=== PATIENT | female | born 1990 | race Caucasian/White ===

== ENCOUNTER 2016-11-21 12:00 | Emergency (ER) | payer OTHER ==
[2016-11-21 12:05] VITALS: TEMP 97.8; BMI 20.8
--- NOTE | 2016-11-21 12:49 | PDOC ---
[id number] No Limitations - History of Present Illness Initial Comments: 11/21/16 13:06 The patient is a 26 year old female, 14 weeks (), with no significant past medical history who presents to the ED with complaints of vomiting for several weeks. The patient reports multiple episodes of vomiting every day since week 6 of her . She states she is unable to retain her food or any medication secondary to vomiting. Patient notes she is currently being treated for a yeast infection. Denies abdominal pain, constipation or diarrhea. Denies vaginal bleeding or vaginal discharge. Denies dysuria, frequency, or urgency. Denies any other symptoms. <Clayton Lacey - Last Filed: 11/21/16 13:06> <Nilda Knott - Last Filed: 11/25/16 08:46> - General Chief Complaint: Nausea/Vomiting Stated Complaint: DEHYDRATED (PCP SENT) Time Seen by Provider: 11/21/16 12:30 Past History <Clayton Lacey - Last Filed: 11/21/16 13:06> - Past Medical History Other medical history: none - Psycho/Social/Smoking Cessation Hx Anxiety: No Suicidal Ideation: No Smoking History: Never smoked Have you smoked in the past 12 months: No Information on smoking cessation initiated: No Hx Alcohol Use: No Drug/Substance Use Hx: No Substance Use Type: None <Nilda Knott - Last Filed: 11/25/16 08:46> - Past Medical History Allergies/Adverse Reactions: Allergies Allergy/AdvReac Type Severity Reaction Status Date / Time No Known Allergies Allergy Verified 11/21/16 12:02 Home Medications: Ambulatory Orders Ondansetron [Zofran -] 4 mg PO TID PRN #21 tablet 11/21/16 Review of Systems - Review of Systems Able to Perform ROS?: Yes Comments:: 11/21/16 13:06 GENERAL/CONSTITUTIONAL: No fever or chills. No weakness. HEAD, EYES, EARS, NOSE AND THROAT: No change in vision. No ear pain or discharge. No sore throat. CARDIOVASCULAR: No chest pain or shortness of breath. RESPIRATORY: No cough, wheezing, or hemoptysis. GASTROINTESTINAL:+ nausea, vomiting. No diarrhea or constipation. GENITOURINARY: No dysuria, frequency, or change in urination. MUSCULOSKELETAL: No joint or muscle swelling or pain. No neck or back pain. SKIN: No rash NEUROLOGIC: No headache, vertigo, loss of consciousness, or change in strength/ sensation. ENDOCRINE: No increased thirst. No abnormal weight change. HEMATOLOGIC/LYMPHATIC: No anemia, easy bleeding, or history of blood clots. ALLERGIC/IMMUNOLOGIC: No hives or skin allergy. All Other Systems: Reviewed and Negative <Clayton Lacey - Last Filed: 11/21/16 13:06> *Physical Exam - Vital Signs Last Vital Signs Temp Pulse Resp BP Pulse Ox 97.8 F 85 18 103/60 100 11/21/16 12:02 11/21/16 12:02 11/21/16 12:02 11/21/16 12:02 11/21/16 12:02 - Physical Exam Comments: 11/21/16 13:06 GENERAL: Awake, alert, and fully oriented, in no acute distress HEAD: No signs of trauma EYES: PERRLA, EOMI, sclera anicteric, conjunctiva clear ENT:+ dry mucosa. Auricles normal inspection, hearing grossly normal, nares patent, oropharynx clear without exudates. NECK: Normal ROM, supple, no lymphadenopathy, JVD, or masses LUNGS: Breath sounds equal, clear to auscultation bilaterally. No wheezes, and no crackles HEART: Regular rate and rhythm, normal S1 and S2, no murmurs, rubs or gallops ABDOMEN: Soft, nontender, normoactive bowel sounds. No guarding, no rebound. No masses EXTREMITIES: Normal range of motion, no edema. No clubbing or cyanosis. No cords, erythema, or tenderness NEUROLOGICAL: Cranial nerves II through XII grossly intact. Normal speech, normal gait SKIN: Warm, Dry, normal turgor, no rashes or lesions noted. <Clayton Lacey - Last Filed: 11/21/16 13:06> - Vital Signs Last Vital Signs Temp Pulse Resp BP Pulse Ox 97.8 F 85 18 103/60 100 11/21/16 12:02 11/21/16 12:02 11/21/16 12:02 11/21/16 12:02 11/21/16 12:02 <Nilda Knott - Last Filed: 11/25/16 08:46> ED Treatment Course - LABORATORY CBC & Chemistry Diagram: 11/21/16 13:37 11/21/16 13:37 <Nilda Knott - Last Filed: 11/25/16 08:46> Medical Decision Making - Medical Decision Making 11/21/16 16:05 Pt improved significantly with IV hydration, zofran. Able to tolerate juice and crackers PO. Stable for DC home. <Nilda Knott - Last Filed: 11/25/16 08:46> *DC/Admit/Observation/Transfer - Attestations Scribe Attestion: 11/21/16 13:06 Documentation prepared by Clayton Lacey, acting as medical technologist generalist for Nilda Knott MD <Clayton Lacey - Last Filed: 11/21/16 13:06> - Discharge Dispostion Admit: No <Nilda Knott - Last Filed: 11/25/16 08:46> Diagnosis at time of Disposition: Nausea & vomiting Qualifiers: Vomiting type: unspecified Vomiting Intractability: non-intractable Qualified Code(s): R11.2 - Nausea with vomiting, unspecified - Discharge Dispostion Disposition: HOME Condition at time of disposition: Stable - Prescriptions Prescriptions: Ondansetron [Zofran -] 4 mg PO TID PRN #21 tablet PRN Reason: Nausea And/Or Vomiting - Referrals Referrals: Esther Montes MD [Primary Care Provider] - - Patient Instructions Printed Discharge Instructions: DI for Hyperemesis Gravidarum Additional Instructions: Crystallized guerline to help with nausea. Can also try guerline tea- steep 1 tbsp grated fresh guerline in 2 cups of hot water. Marleny with honey. Can also add lemon for flavor. - Post Discharge Activity Work/School Note: Back to Work
[2016-11-21] MEDS ORDERED: LACTATED RINGERS SOLUTION 1,000 ML IV STA (12:51)
[2016-11-21 13:50] LABS: BASOPHIL 0.2 % (0-2.0); MCH 31.4 pg (25.7-33.7); MCHC 34.2 g/dl (32.0-36.0); MEAN CELL VOLUME 91.7 fl (80-96); MEAN PLT VOLUME 9.5 fl (7.5-11.1); NEUTROPHILS 70.9 % (42.8-82.8); PLATELET COUNT 159 K/MM3 (134-434); WHITE BLOOD COUNT 9.2 K/mm3 (4.0-10.0)
[2016-11-21 13:55] LABS: URINE APPEARANCE SLCLOUDY; URINE BILIRUBIN NEGATIVE (NEGATIVE); URINE BLOOD NEGATIVE (NEGATIVE); URINE COLOR AMBER; URINE GLUCOSE (UA) NEGATIVE (NEGATIVE); URINE KETONE TRACE (NEGATIVE); URINE NITRITE NEGATIVE (NEGATIVE); URINE UROBILINOGEN NEGATIVE E.U./dl (0.2-1.0)
[2016-11-21 13:58] LABS: URINE LEUK ESTERASE 1+ (NEGATIVE); URINE PROTEIN 1+ (NEGATIVE)
[2016-11-21 14:00] LABS: URINE MUCUS FEW; URINE RBC 7 /hpf (0-3); URINE WBC 6 /hpf (3-5); YEAST FEW
[2016-11-21 14:33] LABS: ALBUMIN 3.5 g/dl (3.4-5.0); ANION GAP 9 (8-16); CALCIUM 8.7 mg/dL (8.5-10.1); CO2 26 mmol/L (21-32); GLUCOSE,RANDOM 83 mg/dL (74-106); MAGNESIUM 1.8 mg/dL (1.8-2.4)
[2016-11-21] MEDS ORDERED: ONDANSETRON 4 MG/2 ML VIAL IVPUSH ONE (14:48)
[2016-11-21 14:52] LABS: ALK PHOS 68 U/L (45-117); BILIRUBIN,TOTAL 0.3 mg/dL (0.2-1.0); CREATININE 0.5 mg/dL (0.55-1.02); SGOT/AST 13 U/L (15-37); SGPT/ALT 20 U/L (12-78); TOT PROT 6.6 g/dl (6.4-8.2)
[2016-11-21] MEDS ORDERED: ONDANSETRON 4 MG/2 ML VIAL ONE (14:57)
[2016-11-21 15:48] VITALS: BP 99/42; PULSE 81
== END 2016-11-21 16:18 | disposition home or self-care (01) ==
LOC: JER 12:00
PROC: 3E0337Z Introduction of Electrolytic and Water Balance Substance into Peripheral Vein, Percutaneous Approach (ICD-10-PCS; principal; 2016-11-21)
PROC: 3E033GC Introduction of Other Therapeutic Substance into Peripheral Vein, Percutaneous Approach (ICD-10-PCS; 2016-11-21)
DX: O21.1 Hyperemesis gravidarum with metabolic disturbance (principal); Z3A.14 14 weeks gestation of pregnancy
CPT/HCPCS: 36415; 80053; 81003; 81015; 83690; 83735; 84702; 84703; 85025; 96361; 96374; 99283-25

== ENCOUNTER 2017-05-07 03:36 | Inpatient (IN) | payer OTHER ==
[2017-05-07] MEDS ORDERED: PROMETHAZINE HCL 25 MG/1 ML VIAL IVPUSH ONE (04:05)
[2017-05-07] MEDS ORDERED: BUTORPHANOL TARTRATE 1 MG/ML VIAL IVPB ONE (04:05)
[2017-05-07] MEDS ORDERED: DEXTROSE 5%-LACTATED RINGERS 1,000 ML IV SCH (04:15)
--- NOTE | 2017-05-07 05:04 | HP ---
Past Medical History - Admission History of Present Illness: 26 y/o with SIUP at 38.1 weeks gestation here with complaints of painful contractions. +FM, some slight vaginal spotting/discharge, no LOF yet. Pt seen earlier today was 2cm dilated. 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 No other complications. GBS negative, HIV negative. History Source: Patient, Medical Record Limitations to Obtaining History: No Limitations - Past Medical History Cardiovascular: No: HTN, MS Pulmonary: No: Asthma, COPD Gastrointestinal: No: Gastritis, Inflamatory Bowel Disease Hepatobiliary: No: Hepatitis B, Hepatitis C ...: 1 ...Para: 0 ...Term: 0 ...: 0 ...Spon : 0 ...Induced : 0 ...Multiple Gestation: 0 ... Weeks Gestation by Dates: 38.1 Heme/Onc: No: Anemia Infectious Disease: No: HIV, MRSA Psych: No: Anxiety, Bipolar, Depression - Past Surgical History Past Surgical History: Yes: None Hx Myomectomy: No Hx Transabdominal Cerclage: No - Smoking History Smoking history: Never smoked Have you smoked in the past 12 months: No - Alcohol/Substance Use Hx Alcohol Use: No - Social History Usual Living Arrangement: Yes: With Significant Other ADL: Independent History of Recent Travel: No Home Medications - Allergies Allergies/Adverse Reactions: Allergies Allergy/AdvReac Type Severity Reaction Status Date / Time No Known Allergies Allergy Verified 05/06/17 14:03 - Home Medications Home Medications: Ambulatory Orders Pnv95/Ferrous Fumarate/FA [ Vitamin Tablet] 1 each PO DAILY 05/06/17 Review of Systems - Review of Systems Constitutional: reports: No Symptoms Eyes: reports: No Symptoms HENT: reports: No Symptoms Neck: reports: No Symptoms Cardiovascular: reports: No Symptoms Respiratory: reports: No Symptoms Gastrointestinal: reports: No Symptoms Genitourinary: reports: No Symptoms Breasts: reports: No Symptoms Reported Musculoskeletal: reports: No Symptoms Integumentary: reports: No Symptoms Neurological: reports: No Symptoms Endocrine: reports: No Symptoms Hematology/Lymphatic: reports: No Symptoms Psychiatric: reports: No Symptoms Physical Exam - Maternity Constitutional: Yes: Well Nourished, No Distress, Calm Eyes: Yes: Conjunctiva Clear, EOM Intact HENT: Yes: Atraumatic, Normocephalic Neck: Yes: Supple, Trachea Midline Cardiovascular: Yes: Regular Rate and Rhythm Lungs: Clear to auscultation Breast(s): Yes: WNL - Abdominal Exam/OB Fundal Height: 37 Number of Fetuses: Single Presentation: Vertex Contractions: Yes Regularity: Regular Intensity: Moderate Monitor Mode: External Heart Rate (range): 125 Category: I Accelerations: Uniform Decelerations: Early - Vaginal Exam/OB Vaginal Bleediing: Yes (slight blood tinged discharge) Dilatation (cm): 4 Effacement (%): 90 Amniotic Membrane Status: Intact Station: -1 - Physical Exam Psychiatric: Yes: Alert, Oriented Hemorrhage Risk Assessment - Risk Factors Medium Risk Factors: Yes: None High Risk Factors: Yes: None Risk Score: 1 Risk Level: Medium Risk Assessment/Plan 26 y/o with SIUP at 38.1 weeks gestation here in labor - AFVSS - FHTS cat 1 - labor - admit to L&D, start IV, labs, ambulation PRN, analgesia PRN, for expectant management - GBS negative
[2017-05-07 05:18] VITALS: BMI 24.5
[2017-05-07 05:19] LABS: BASOPHIL 0.4 % (0-2.0); EOSINOPHIL 1.2 % (0-4.5); MCH 32.2 pg (25.7-33.7); MEAN CELL VOLUME 94.7 fl (80-96); PLATELET COUNT 143 K/MM3 (134-434); RDW 13.5 % (11.6-15.6); WHITE BLOOD COUNT 11.6 K/mm3 (4.0-10.0)
[2017-05-07 05:30] LABS: INR 1.01 (0.82-1.09); PROTHROMBIN TIME (PATIENT) 11.1 SEC (9.98-11.88)
[2017-05-07 05:33] LABS: ACTIVATED PTT 27.3 SECONDS (26.9-34.4)
[2017-05-07 05:38] LABS: ANION GAP 8 (8-16); CALCIUM 8.9 mg/dL (8.5-10.1); CO2 24 mmol/L (21-32); CREATININE 0.6 mg/dL (0.55-1.02); GLUCOSE,RANDOM 75 mg/dL (74-106)
--- NOTE | 2017-05-07 07:33 | PN ---
Ante-Partal Exam - Subjective Vital Signs: Vital Signs Temperature 98.5 F 05/07/17 07:00 Pulse Rate 74 05/07/17 07:00 Respiratory Rate 20 05/07/17 07:00 Blood Pressure 114/69 05/07/17 07:00 O2 Sat by Pulse Oximetry (%) Bleeding: No Headache: No Visual changes: No Right upper quadrant pain: No Pain (scale 1-10): 8 - Contractions Contractions: Yes Regularity: Regular Intensity: Mod/Strong Monitor Mode: External - Exam during Labor Heart Rate: 130 Variability: Moderate Category: I Monitor Accelerations: Present Monitor Decelerations: None Exam: Vaginal Dilatation (cm): 5 Effacement (%): 90 Amniotic Membrane Status: Intact Presentation: Vertex Station: -1 - Assessment/Plan Assessment/Plan: 26 y/o with SIUP at 38.1 weeks, labor - FHTS cat 1 - active labor, continue expectant management - analgesia prn - GBS negative - anticipate
[2017-05-07] MEDS ORDERED: TUBERCULIN PPD 5 TU/0.1ML SYRINGE (IN PATIENT USE ONLY) ID ONE (09:00)
--- NOTE | 2017-05-07 13:27 | PN ---
Ante-Partal Exam - Subjective Subjective: Pt states contractions the IV medication is wearing off. Feeling the contractions coming back strong again. Vital Signs: Vital Signs Temperature 98.2 F 05/07/17 12:00 Pulse Rate 72 05/07/17 12:00 Respiratory Rate 18 05/07/17 12:00 Blood Pressure 110/68 05/07/17 12:00 O2 Sat by Pulse Oximetry (%) Bleeding: Yes Bleeding Description: Mild Headache: No Visual changes: No Right upper quadrant pain: No Pain (scale 1-10): 5 - Contractions Contractions: Yes Regularity: Irregular Intensity: Moderate - Exam during Labor Heart Rate: 140 Variability: Moderate Category: I Monitor Accelerations: Present Monitor Decelerations: None Exam: Vaginal Dilatation (cm): 6.5 Effacement (%): 90 Amniotic Membrane Status: Ruptured (AROM for clear fluid at this exam) Amniotic Fluid: Clear Presentation: Vertex Station: -1 - Intrapartum Hemorrhage Risk High Risk Factors: None Risk Score: 0 Risk Level: Low Risk - Assessment/Plan Assessment/Plan: 26 y/o with SIUP at 38.1 weeks in labor - AFVSS - FHTs cat 1 - admitted in labor, s/p AROM, making progress with expectant management, will wait to start pitocin at this time, pt tolerating contractions, for analgesia/ epidural prn - GBS negative - anticipate
[2017-05-07] MEDS ORDERED: BUTORPHANOL TARTRATE 1 MG/ML VIAL IM PRN (14:45)
[2017-05-07] MEDS ORDERED: PROMETHAZINE HCL 25 MG/1 ML VIAL IVPB PRN (14:46)
--- NOTE | 2017-05-07 17:03 | PN ---
Delivery - Delivery Vaginal Delivery: No Problems Episiotomy/Laceration: 2nd degree Delivery, Single - Stages of Labor Date of Delivery: 05/07/17 Time of Delivery: 16:34 Date Placenta Delivered: 05/07/17 Time Placenta Delivered: 16:47 Placenta: Yes: Spontaneous - Condition of Water Treatment Technician/Bill Recapitulation Clerk Present: No Gender: Female Position: Right, OA - 1 Minute Total Score: 9 5 Minutes Total Score: 9 - Keller Feeding Plan Initial Plan: Exclusive throughout hospitalization Remarks - Remarks Remarks: Normal from JOAN position anterior shoulder (left) delivered with ease, along with remainder of no nuchal cord noted 2nd degree perineal laceration noted - 10cc of 1% lidocaine injected and repair completed with 2-0 Chromic suture in the usual fashion EBL 300cc sponge and needle count correct after the procedure mom stable baby to well baby nursery
[2017-05-07] MEDS ORDERED: BENZOCAINE 28 GM HEMORRHOIDAL OINTMENT TP PRN (17:04)
[2017-05-07] MEDS ORDERED: METHYLERGONOVINE MALEATE 0.2 MG/1 ML AMP IM PRN (17:04)
[2017-05-07] MEDS ORDERED: WITCH HAZEL 50% (TUCKS) 40 PAD/JAR PAD TP PRN (17:04)
[2017-05-07] MEDS ORDERED: BISACODYL 10 MG SUPP.RECT RC PRN (17:04)
[2017-05-07] MEDS ORDERED: BENZOCAINE 20% 57 GM BOTTLE TP PRN (17:04)
[2017-05-07] MEDS ORDERED: OXYTOCIN 20 UNITS in 0.9% NS 1,000 ML IV SCH (17:15)
[2017-05-07] MEDS: IBUPROFEN 600 MG TABLET (FP) PO PRN (18:15)
[2017-05-07] MEDS: ACETAMINOPHEN 325 MG TABLET (FP) PO PRN (18:15)
[2017-05-08] MEDS: IBUPROFEN 600 MG TABLET (FP) PO PRN ×3 (06:29→21:12)
[2017-05-08] MEDS: ACETAMINOPHEN 325 MG TABLET (FP) PO PRN ×3 (06:30→21:13)
[2017-05-08 07:58] LABS: BASOPHIL 0.5 % (0-2.0); EOSINOPHIL 0.7 % (0-4.5); MCH 32.1 pg (25.7-33.7); MCHC 33.9 g/dl (32.0-36.0); MEAN CELL VOLUME 94.5 fl (80-96); NEUTROPHILS 65.9 % (42.8-82.8); PLATELET COUNT 117 K/MM3 (134-434); RDW 13.9 % (11.6-15.6); WHITE BLOOD COUNT 11.8 K/mm3 (4.0-10.0)
--- NOTE | 2017-05-08 09:06 | PN ---
Post Progress Note Type of Delivery: Vital Signs: Vital Signs Temperature 98.4 F 05/08/17 06:00 Pulse Rate 84 05/08/17 06:00 Respiratory Rate 18 05/08/17 06:00 Blood Pressure 103/69 05/08/17 06:00 O2 Sat by Pulse Oximetry (%) 100 05/07/17 17:40 Uterus: Yes: Fundus Firm, Fundus below umbilicus Abdomen/GI: Yes: Abdomen soft, Passing flatus, Tolerating PO. No: Abdominal Distention, Tender Lochia: Yes: Rubra Lochia, amount: Small Extremities: Yes: Calves non-tender. No: Edema Perineum: Yes: Laceration (2nd degree - repaired) Activity: Ambulating - Labs Labs: CBC WBC 11.8 K/mm3 (4.0-10.0) H 05/08/17 07:09 RBC 3.58 M/mm3 (3.60-5.2) L 05/08/17 07:09 Hgb 11.5 GM/dL (10.7-15.3) D 05/08/17 07:09 Hct 33.9 % (32.4-45.2) 05/08/17 07:09 MCV 94.5 fl (80-96) 05/08/17 07:09 MCH 32.1 pg (25.7-33.7) 05/08/17 07:09 MCHC 33.9 g/dl (32.0-36.0) 05/08/17 07:09 RDW 13.9 % (11.6-15.6) 05/08/17 07:09 Plt Count 117 K/MM3 (134-434) L 05/08/17 07:09 MPV 11.0 fl (7.5-11.1) 05/08/17 07:09 Neutrophils % 65.9 % (42.8-82.8) 05/08/17 07:09 Lymphocytes % 25.0 % (8-40) 05/08/17 07:09 Monocytes % 7.9 % (3.8-10.2) 05/08/17 07:09 Eosinophils % 0.7 % (0-4.5) 05/08/17 07:09 Basophils % 0.5 % (0-2.0) 05/08/17 07:09 Problem List - Problems (1) Normal vaginal delivery Code(s): O80 - ENCOUNTER FOR FULL-TERM UNCOMPLICATED DELIVERY Assessment/Plan 26 y/o PPD#1 s/p normal - AFVSS - Hgb 11.5 post delivery, stable - encourage ambulation - regular diet - PO pain meds - routine care
--- NOTE | 2017-05-08 09:08 | DS ---
Physical Exam-CARDIAC/VASCULAR SONOGRAPHER Vital Signs: Vital Signs Temperature 98.4 F 05/08/17 06:00 Pulse Rate 84 05/08/17 06:00 Respiratory Rate 18 05/08/17 06:00 Blood Pressure 103/69 05/08/17 06:00 O2 Sat by Pulse Oximetry (%) 100 05/07/17 17:40 Constitutional: Yes: Well Nourished, No Distress, Calm Eyes: Yes: Conjunctiva Clear, EOM Intact HENT: Yes: Atraumatic, Normocephalic Neck: Yes: Trachea Midline Cardiovascular: Yes: Regular Rate and Rhythm Respiratory: Yes: Regular Gastrointestinal: Yes: Normal Bowel Sounds, Soft Vaginal Exam: Yes: Bleeding (normal post lochia) Wound/Incision: Yes: Well Approximated, Sutures Intact Psychiatric: Yes: Alert, Oriented Labs: CBC, BMP 05/08/17 07:09 05/07/17 04:30 Delivery - Delivery Vaginal Delivery: No Problems Type of Anesthesia: Local Episiotomy/Laceration: Perineal Extension/lac, 2nd degree EBL (cc): 300 Delivery, Single - Stages of Labor Date 1st Stage Initiatied: 05/07/17 Time 1st Stage Initiated: 03:00 Date 2nd Stage Initiated: 05/07/17 Time 2nd Stage Initiated: 16:15 Date of Delivery: 05/07/17 Time of Delivery: 16:34 Time Placenta Delivered: 16:47 Placenta: Yes: Spontaneous - Condition of Metal Technician/Teacher Nursery School Present: No Gender: Female Weight: 6 lb Position: Right, OA Total Hours ROM (Hrs/Mins): 3HRS 27MIN - 1 Minute Total Score: 9 5 Minutes Total Score: 9 - Feeding Plan Initial Plan: Exclusive throughout hospitalization Discharge Summary Reason For Visit: ADMIT FOR LABOR Current Active Problems Normal vaginal delivery (Acute) Procedures: Principal: normal Hospital Course: Patient admitted on 05/07 in labor. Pt underwent a normal uncomplicated on 05/07. She then had an uncomplicated post recovery and was discharged home on post day 2. - Home Medications Comprehensive Discharge Medication List: Ambulatory Orders Pnv95/Ferrous Fumarate/FA [ Vitamin Tablet] 1 each PO DAILY 05/06/17
[2017-05-08] MEDS ORDERED: DIPHTH,PERTUSS(ACELL),TET 0.5 ML DISP.SYRIN IM ONE (10:00)
[2017-05-08] MEDS: PRENATAL VITAMINS W/ FOLIC ACID TABLET (FP) PO SCH (10:37)
[2017-05-08 14:40] VITALS: PULSE 82; TEMP 98.7
[2017-05-08] MEDS ORDERED: SENNOSIDES/DOCUSATE COMBO (SENNA PLUS) TABLET (UD) PO PRN (22:00)
[2017-05-09] MEDS: IBUPROFEN 600 MG TABLET (FP) PO PRN (07:52)
[2017-05-09] MEDS: ACETAMINOPHEN 325 MG TABLET (FP) PO PRN (07:53)
[2017-05-09 09:02] VITALS: BP 112/75
[2017-05-09] MEDS: PRENATAL VITAMINS W/ FOLIC ACID TABLET (FP) PO SCH (09:24)
--- NOTE | 2017-05-09 10:00 | PN ---
Post Progress Note - Subjective Subjective: 26 yo Para 1 status post seen and evaluated Doing well. Post Day: 2 Type of Delivery: Vital Signs: Vital Signs Temperature 98.7 F 05/09/17 08:40 Pulse Rate 82 05/09/17 08:40 Respiratory Rate 20 05/09/17 08:40 Blood Pressure 112/75 05/09/17 08:40 O2 Sat by Pulse Oximetry (%) 100 05/07/17 17:40 Breast Exam: Yes: Soft Uterus: Yes: Fundus Firm Abdomen/GI: Yes: Abdomen soft, Tolerating PO Lochia: Yes: Rubra Lochia, amount: Moderate - Labs Labs: CBC WBC 11.8 K/mm3 (4.0-10.0) H 05/08/17 07:09 RBC 3.58 M/mm3 (3.60-5.2) L 05/08/17 07:09 Hgb 11.5 GM/dL (10.7-15.3) D 05/08/17 07:09 Hct 33.9 % (32.4-45.2) 05/08/17 07:09 MCV 94.5 fl (80-96) 05/08/17 07:09 MCH 32.1 pg (25.7-33.7) 05/08/17 07:09 MCHC 33.9 g/dl (32.0-36.0) 05/08/17 07:09 RDW 13.9 % (11.6-15.6) 05/08/17 07:09 Plt Count 117 K/MM3 (134-434) L 05/08/17 07:09 MPV 11.0 fl (7.5-11.1) 05/08/17 07:09 Neutrophils % 65.9 % (42.8-82.8) 05/08/17 07:09 Lymphocytes % 25.0 % (8-40) 05/08/17 07:09 Monocytes % 7.9 % (3.8-10.2) 05/08/17 07:09 Eosinophils % 0.7 % (0-4.5) 05/08/17 07:09 Basophils % 0.5 % (0-2.0) 05/08/17 07:09 Assessment/Plan Status post normal spontaneous vaginal delivery Stable D / C Home
== END 2017-05-09 14:20 | disposition home or self-care (01) | DRG 560 ==
LOC: JDEL 03:36 → JLDR 03:40 → J3W 19:56
PROVIDERS: ADMIT Obstetrics & Gynecology; ATTEND Obstetrics & Gynecology
PROC: 0KQM0ZZ Repair Perineum Muscle, Open Approach (ICD-10-PCS; principal; 2017-05-07)
PROC: 10E0XZZ Delivery of Products of Conception, External Approach (ICD-10-PCS; 2017-05-07)
DX: O70.1 Second degree perineal laceration during delivery (principal); Z3A.38 38 weeks gestation of pregnancy; Z37.0 Single live birth
CPT/HCPCS: 36415; 59409; 80048; 85025; 85610; 85730; 86593; 86762; 86850; 86900; 86901; 90715

== ENCOUNTER 2024-03-07 10:03 | Day surgery (SDC) | payer OTHER ==
[2024-02-10 09:55] VITALS: BMI 25.2
[2024-03-07 12:17] VITALS: TEMP 97.3
[2024-03-07 12:28] VITALS: BP 107/64; PULSE 64; RESP 19
== END 2024-03-07 13:04 | disposition home or self-care (01) ==
LOC: FASU-ENDO 10:03
PROVIDERS: ATTEND Internal Medicine Gastroenterology
PROC: 0DJD8ZZ Inspection of Lower Intestinal Tract, Via Natural or Artificial Opening Endoscopic (ICD-10-PCS; principal; 2024-03-07 11:54)
DX: K62.5 Hemorrhage of anus and rectum (principal)
CPT/HCPCS: 81025

== ENCOUNTER 2024-09-04 13:59 | Emergency (ER) | payer OTHER ==
[2024-09-04 14:06] VITALS: RESP 18; BMI 24.2
[2024-09-04 14:58] VITALS: BP 124/76; PULSE 86; TEMP 97.9
[2024-09-04 15:08] LABS: EPI CELLS >36 /uL (0-25.1); HCG,QUALITATIVE URINE Negative; HYALINE CASTS 2 /uL (0-3.1); PH,URINE 5.5 (5.0-8.0); URINE APPEARANCE CLEAR; URINE BACTERIA 2113 /uL (0-1359); URINE BILIRUBIN NEGATIVE (NEGATIVE); URINE COLOR YELLOW; URINE GLUCOSE (UA) NEGATIVE (NEGATIVE); URINE KETONE NEGATIVE (NEGATIVE); URINE LEUK ESTERASE NEGATIVE (NEGATIVE); URINE NITRITE NEGATIVE (NEGATIVE); URINE PROTEIN NEGATIVE (NEGATIVE); URINE RBC 105 /uL (0-23.9); URINE UROBILINOGEN 0.2 mg/dL (0.2-1.0); URINE WBC 17 /uL (0-25.8)
[2024-09-04] MEDS ORDERED: CEPHALEXIN MONOHYDRATE 500 MG CAPSULE (UD) ONE (16:11)
[2024-09-04] MEDS: CEPHALEXIN MONOHYDRATE 500 MG CAPSULE (UD) PO ONE (16:21)
== END 2024-09-04 16:22 | disposition home or self-care (01) ==
LOC: JERFT 13:59
DX: N39.0 Urinary tract infection, site not specified (principal); R39.15 Urgency of urination
CPT/HCPCS: 76775-TC; 81003; 84703; 87086; 93005; 93010; 99285-25